=== PATIENT | male | born 1950 | race Caucasian/White ===

== ENCOUNTER → 2021-06-17 13:20 | Outpatient (BNVA) | payer MEDICARE, SELFPAY | PROVIDERS: Referring Provider Nurse Practitioner Family; Visit Provider Physician Assistant | DX: M54.42 Lumbago with sciatica, left side (principal); M54.41 Lumbago with sciatica, right side; M51.37 Other intervertebral disc degeneration, lumbosacral region | CPT/HCPCS: 72110 ==

== ENCOUNTER 2021-08-27 12:34 | Outpatient (CLI) | payer MEDICARE, SELFPAY ==
--- NOTE | 2021-08-27 12:40 | MR_ITS ---
WS: [id number] MRI LUMBAR SPINE NONCONTRAST TECHNIQUE: Sagittal T1, T2 and STIR imaging. Axial T1 and T2 imaging. CLINICAL INFORMATION: M54.42 - Lumbago with sciatica, left side COMPARISON: None. FINDINGS: Counting performed in the craniocervical junction. S1 is partially lumbarized. No acute compression. Disc bulging worse L4-L5. L1-L2: Normal. L2-L3: Small LEFT foraminal protrusion with slight contact of the exiting LEFT L2 nerve root. Mild LE FT foraminal narrowing. Spinal canal is patent. Slight narrowing of the LEFT subarticular recess. L3-L4: Mild annular bulging. Slight effacement of ventral thecal sac. Mild central canal stenosis. LE FT foraminal protrusion with a small annular fissure. Impingement on the exiting LEFT L3 nerve root w ith moderate LEFT foraminal narrowing. Mild facet arthropathy. L4-L5: Broad-based central disc protrusion with moderate to severe central canal stenosis. Impingemen t traversing L5 nerve roots bilaterally. Moderate to advanced facet arthropathy with ligamentum flavu m hypertrophy. Impingement traversing L5 nerve roots bilaterally. RIGHT foraminal protrusion with mod erate RIGHT foraminal narrowing L5-S1: Tiny central protrusion L5-S1 with slight contact of the RIGHT S1 nerve root. Spinal canal is patent. Foramen are patent. Moderate facet arthropathy. Disc osteophyte complexes in the cervical spinal actuarial clerk imaging at C5-C6 and C6-C7 with mild central c anal stenosis. This can be followed up with cervical spine MRI. MR/MR lumbar spine wo con* [id number] IMPRESSION: 1. Counting performed from the craniocervical junction. S1 is partially lumbar ized. 2. Broad-based central protrusion L4-L5 with moderate to severe central canal stenosis and impingement on the traversing L5 nerve roots bilaterally. 3. RIGHT foraminal protrusion L4-L5 with moderate RIGHT foraminal narrowing an d impingement of the exiting RIGHT L4 nerve root. 4. Mild central canal stenosis L3-L4. 5. Small LEFT foraminal protrusion L3-L4 with small annular fissure and slight impingement on the exiting LEFT L3 nerve root. 6. Moderate facet arthropathy L4-L5 and L5-S1. 7. Disc osteophyte complexes in the cervical spinal actuarial clerk imaging at C5-C6 and C6-C7 with mild central canal stenosis. This can be followed up with cervical spine MRI.
== END 2021-08-27 12:35 | disposition home or self-care (01) ==
LOC: RAD 12:34
PROVIDERS: Visit Provider Physician Assistant
DX: M54.42 Lumbago with sciatica, left side (principal); M54.41 Lumbago with sciatica, right side; M51.37 Other intervertebral disc degeneration, lumbosacral region; M51.26 Other intervertebral disc displacement, lumbar region; M47.816 Spondylosis without myelopathy or radiculopathy, lumbar region; M47.817 Spondylosis without myelopathy or radiculopathy, lumbosacral region; M25.78 Osteophyte, vertebrae
CPT/HCPCS: 72148

== ENCOUNTER → 2021-10-21 10:02 | Outpatient (BNVA) | payer MEDICARE, SELFPAY | PROVIDERS: Visit Provider Orthopaedic Surgery | DX: M54.42 Lumbago with sciatica, left side (principal); M54.41 Lumbago with sciatica, right side; M48.062 Spinal stenosis, lumbar region with neurogenic claudication | CPT/HCPCS: 99214 ==

== ENCOUNTER → 2021-11-03 09:58 | Outpatient (BNVA) | payer MEDICARE, SELFPAY | PROVIDERS: Referring Provider Orthopaedic Surgery; Visit Provider Anesthesiology Pain Medicine | DX: M48.062 Spinal stenosis, lumbar region with neurogenic claudication (principal); M51.37 Other intervertebral disc degeneration, lumbosacral region; M47.816 Spondylosis without myelopathy or radiculopathy, lumbar region; M79.604 Pain in right leg; M79.605 Pain in left leg; Z87.891 Personal history of nicotine dependence | CPT/HCPCS: 99205 ==

== ENCOUNTER → 2021-11-23 13:44 | Outpatient (BNVA) | payer MEDICARE, SELFPAY | PROVIDERS: Visit Provider Anesthesiology Pain Medicine | DX: E11.9 Type 2 diabetes mellitus without complications (principal); Z79.84 Long term (current) use of oral hypoglycemic drugs; Z79.4 Long term (current) use of insulin; M54.16 Radiculopathy, lumbar region | CPT/HCPCS: 36416; 62323; 82962; J1040; J3490 ==